=== PATIENT | female | born 1995 | race Caucasian/White ===

== ENCOUNTER 2023-03-15 03:12 | Emergency (ER) | payer BC ==
[2023-03-15] MEDS ORDERED: Ketorolac Tromethamine 30 MG/ML VIAL ONE (03:29)
[2023-03-15] MEDS ORDERED: Diazepam 5 MG TAB ONE (04:12)
== END 2023-03-15 04:20 | disposition home or self-care (01) ==
LOC: CSHERS 03:12
DX: S39.012A Strain of muscle, fascia and tendon of lower back, initial encounter (principal); F17.210 Nicotine dependence, cigarettes, uncomplicated; X58.XXXA Exposure to other specified factors, initial encounter
CPT/HCPCS: 96372; 99283; J1885